=== PATIENT | female | born 1965 | race African-American/Black ===

== ENCOUNTER 2018-04-02 10:47 | Emergency (ER) | payer OTHER ==
[2018-04-02 10:54] VITALS: BP 136/80
--- NOTE | 2018-04-02 11:31 | ER Document Report ---
HPI - HPI Patient complains to provider of: knee pain Onset: Other - 2 days Onset/Duration: Persistent Quality of pain: Achy Pain Level: 3 Context: Patient states she has chronic knee pain and ran out of her diclofenac 2 days ago. Patient is here visiting out of town to take care of her mother. Patient is requesting a refill of her diclofenac. Patient denies any new injury to the knee. Patient denies any fever. Associated Symptoms: Other - Right knee pain Exacerbated by: Movement Relieved by: Denies Similar symptoms previously: Yes Recently seen / treated by doctor: No - ROS ROS below otherwise negative: Yes Systems Reviewed and Negative: Yes All other systems reviewed and negative - CONSTITUTIONAL Constitutional: DENIES: Fever, Chills - NEURO Neurology: DENIES: Headache, Weakness - GASTROINTESTINAL Gastrointestinal: DENIES: Nausea, Patient vomiting - MUSCULOSKELETAL Musculoskeletal: REPORTS: Extremity pain. DENIES: Back Pain - DERM Skin Color: Normal Skin Problems: None Past Medical History - General Information source: Patient - Social History Smoking Status: Never Smoker Frequency of alcohol use: None Drug Abuse: None Lives with: Family Family History: Reviewed & Not Pertinent - Past Medical History Cardiac Medical History: Reports: Hx Hypertension Pulmonary Medical History: Reports: Hx Asthma Musculoskeltal Medical History: Reports Hx Arthritis Past Surgical History: Reports: Hx Herniorrhaphy, Hx Hysterectomy, Other - lap band Vertical Provider Document - CONSTITUTIONAL Agree With Documented VS: Yes Exam Limitations: No Limitations General Appearance: WD/WN, No Apparent Distress - INFECTION CONTROL TRAVEL OUTSIDE OF THE [place] IN LAST 30 DAYS: No - HEENT HEENT: Atraumatic, Normocephalic - NECK Neck: Normal Inspection - RESPIRATORY Respiratory: No Respiratory Distress - CARDIOVASCULAR Pulses: Normal: Dorsalis pedis - MUSCULOSKELETAL/EXTREMETIES Musculoskeletal/Extremeties: MAEW, FROM, Tender - Left knee joint tenderness to medial compartment, no laxity with varus or valgus maneuvers., No Edema - NEURO Level of Consciousness: Awake, Alert, Appropriate Motor/Sensory: No Motor Deficit - DERM Integumentary: Warm, Dry, No Rash Course - Re-evaluation Re-evalutation: 04/02/18 11:29 Patient had empty bottle from her previous prescription. Patient encouraged to follow-up with her primary doctor orthopedic for refills of her medicines. - Vital Signs Vital signs: Temp Pulse Resp BP Pulse Ox 98.6 F 87 14 136/80 H 99 04/02/18 10:53 04/02/18 10:53 04/02/18 10:53 04/02/18 10:53 04/02/18 10:53 Discharge - Discharge Clinical Impression: Medication refill Chronic knee pain Qualifiers: Laterality: left Qualified Code(s): M25.562 - Pain in left knee Condition: Stable Disposition: HOME, SELF-CARE Instructions: Arthritis ([facility]) Additional Instructions: Return immediately for any new or worsening symptoms Followup with your primary care provider, call tomorrow to make a followup appointment Prescriptions: Diclofenac Sodium 75 mg PO BID PRN #30 tablet.dr PASTRANA Reason: Referrals: [facility] ([place]) [Provider Group] - Follow up as needed
== END 2018-04-02 11:36 | disposition home or self-care (01) ==
LOC: ER 10:47
DX: Z76.0 Encounter for issue of repeat prescription (principal); G89.29 Other chronic pain; M25.561 Pain in right knee; T39.396A Underdosing of other nonsteroidal anti-inflammatory drugs [NSAID], initial encounter; Z91.128 Patient's intentional underdosing of medication regimen for other reason; Z91.14 Patient's other noncompliance with medication regimen; I10 Essential (primary) hypertension; J45.909 Unspecified asthma, uncomplicated
CPT/HCPCS: 99281